=== PATIENT | female | born 1970 | race Caucasian/White ===

== ENCOUNTER 2022-02-13 11:06 | Outpatient (CLI) | payer SELFPAY ==
[2022-02-13 11:46] LABS: Basophils Absolute Auto 0.01 K/uL (0.00-0.30); Basophils Percent Auto 0.2 % (0.0-3.0); Eosinophils Absolute Auto 0.07 K/uL (0.00-0.50); Eosinophils Percent Auto 1.2 % (0.0-7.0); Hematocrit 41.4 % (33.0-51.0); Hemoglobin* 13.9 gm/dL (12.0-16.0); Immature Granulocytes Abs Auto 0.01 K/uL (0.00-0.30); Lymphocytes Absolute Auto 1.76 K/uL (0.90-2.90); Lymphocytes Percent Auto 30.1 % (20-44); Mean Corpuscular HGB Conc 34 gm/dL (32-36); Mean Corpuscular Hemoglobin 29 pg (26-34); Mean Corpuscular Volume 87 fL (80-100); Neutrophils Absolute Auto 3.64 K/uL (1.7-7.0); Neutrophils Percent Auto 62.3 % (42.0-72.0); Platelet Count* 222 K/uL (140-440); RDW Coefficient of Variation % 11.7 % (11.5-15.5); Red Blood Count 4.75 m/uL (4.00-5.20); White Blood Count* 5.84 K/uL (4.50-11.00)
[2022-02-13 11:52] LABS: Slide Review Reflex No
[2022-02-13 12:24] LABS: Albumin* 4.3 g/dL (3.3-5.0); Chloride* 105 mmol/L (96-114); Potassium* 4.1 mmol/L (3.6-5.1); Sodium* 136 mmol/L (135-149)
[2022-02-13 12:26] LABS: Bilirubin Total* 1.1 mg/dL (0.1-1.5); Carbon Dioxide* 25 mmol/L (20-32); Creatinine* 0.6 mg/dL (0.5-1.5); Estimated Glomerular Filt Rate 109 ml/min
[2022-02-13 12:27] LABS: Alanine Aminotransferase* 17 U/L (4-35); Alkaline Phosphatase* 67 U/L (40-150); Aspartate Amino Transferase* 33 U/L (12-35); Blood Urea Nitrogen* 13 mg/dL (7-30); Calcium* 9.3 mg/dL (8.4-10.6); Glucose* 104 mg/dL (60-115); Total Protein* 7.5 g/dL (6.0-8.3)
[2022-02-13 12:54] LABS: Thyroid Stimulating Hormone* 0.398 uIU/mL (0.270-4.20)
[2022-02-13 12:58] LABS: Ferritin* 7.4 ng/mL (11.1-264.0)
[2022-02-14 09:15] LABS: Estradiol Premenol Female 42 pg/mL
[2022-02-14 19:31] LABS: Follicle Stimulating Hormone 7.2 IU/L; Luteinizing Hormone, Serum 3.9 IU/L
[2022-02-14 19:53] LABS: Free T3 2.9 pg/mL (2.5-4.3)
[2022-02-14 22:54] LABS: Insulin, Fasting 4 uIU/mL (3-25)
[2022-02-17 12:01] LABS: Progesterone, HPLC-MS/MS 8.57 ng/mL
[2022-02-17 21:58] LABS: T3 Reverse - LC-MS/MS 15.5 ng/dL (9.0-27.0); T3, Ratio (T3:RT3) 6.5 (4.2-11.0); T3, Total - LC-MS/MS 101 ng/dL (80-200)
== END 2022-02-13 11:07 | disposition home or self-care (01) ==
LOC: LAB 11:12
DX: E03.9 Hypothyroidism, unspecified (principal); E34.9 Endocrine disorder, unspecified
CPT/HCPCS: 36415; 80053; 82670; 82728; 83001; 83002; 83525; 84144; 84436; 84443; 84480; 84481; 84482; 85025

== ENCOUNTER 2022-04-22 08:15 | Outpatient (CLI) | payer SELFPAY ==
[2022-04-22 09:24] LABS: Ferritin* 93.1 ng/mL (11.1-264.0)
[2022-04-23 19:42] LABS: Free T3 3.1 pg/mL (2.5-4.3)
[2022-04-27 08:11] LABS: T3 Reverse - LC-MS/MS 23.4 ng/dL (9.0-27.0); T3, Ratio (T3:RT3) 4.1 (4.2-11.0); T3, Total - LC-MS/MS 97 ng/dL (80-200)
== END 2022-04-22 08:16 | disposition home or self-care (01) ==
DX: R53.83 Other fatigue (principal)
CPT/HCPCS: 36415; 82728; 84436; 84480; 84481; 84482

== ENCOUNTER 2022-06-10 09:52 | Outpatient (CLI) | payer SELFPAY ==
[2022-06-11 17:45] LABS: DHEAS 84 ug/dL (35-256)
[2022-06-11 17:51] LABS: Free T3 2.8 pg/mL (2.5-4.3)
[2022-06-13 18:38] LABS: T3, Ratio (T3:RT3) 4.7 (4.2-11.0); T3, Total - LC-MS/MS 90 ng/dL (80-200)
== END 2022-06-10 09:53 | disposition home or self-care (01) ==
LOC: LAB 09:54
DX: E03.9 Hypothyroidism, unspecified (principal)
CPT/HCPCS: 36415; 82627; 84436; 84443; 84480; 84481; 84482

== ENCOUNTER 2022-11-28 10:16 | Outpatient (RCR) | payer SELFPAY ==
[2022-09-08 11:18] LABS: Free T4 Free Thyroxine* 0.96 ng/dL (0.70-1.85)
[2022-09-08 11:32] LABS: Thyroid Stimulating Hormone* 0.499 uIU/mL (0.270-4.20)
[2022-09-08 11:36] LABS: Ferritin* 28.7 ng/mL (11.1-264.0)
[2022-09-09 16:53] LABS: Free T3 2.8 pg/mL (2.5-4.3)
[2022-09-09 17:34] LABS: Insulin, Fasting 6 uIU/mL (3-25)
[2022-09-12 12:18] LABS: T3 Reverse - LC-MS/MS 16.7 ng/dL (9.0-27.0); T3, Ratio (T3:RT3) 5.5 (4.2-11.0); T3, Total - LC-MS/MS 92 ng/dL (80-200)
[2022-11-28 11:29] LABS: Free T4 Free Thyroxine* 0.92 ng/dL (0.70-1.85)
[2022-11-28 11:43] LABS: Thyroid Stimulating Hormone* 0.462 uIU/mL (0.270-4.20)
[2022-11-28 11:48] LABS: Ferritin* 60.2 ng/mL (11.1-264.0)
[2022-11-29 23:23] LABS: Free T3 3.4 pg/mL (2.5-4.3)
[2022-11-30 04:35] LABS: DHEAS 103 ug/dL (35-256)
[2022-12-01 11:35] LABS: Testosterone, Low Level 12 ng/dL (9-55)
[2022-12-03 08:44] LABS: T3 Reverse - LC-MS/MS 16.2 ng/dL (9.0-27.0); T3, Ratio (T3:RT3) 7.3 (4.2-11.0); T3, Total - LC-MS/MS 119 ng/dL (80-200)
== END 2023-11-10 17:00 | disposition home or self-care (01) ==
LOC: LAB 10:16
PROVIDERS: PCP Obstetrics & Gynecology Reproductive Endocrinology; Visit Provider Obstetrics & Gynecology Reproductive Endocrinology
DX: E03.9 Hypothyroidism, unspecified (principal); R53.83 Other fatigue
CPT/HCPCS: 36415; 82627; 82670; 82679; 82728; 83525; 84144; 84403; 84439; 84443; 84480; 84481; 84482

== ENCOUNTER 2023-05-08 09:32 | Outpatient (CLI) | payer SELFPAY ==
[2023-05-10 07:38] LABS: Anti-Nuclear Ab(ANA)IgG ELISA None Detected (None Detected)
== END 2023-05-08 09:33 | disposition home or self-care (01) ==
LOC: LAB 09:33
DX: R53.83 Other fatigue (principal)
CPT/HCPCS: 36415; 86039